=== PATIENT | female | born 1945 | race Caucasian/White ===

== ENCOUNTER 2020-05-16 12:22 | Outpatient (CLI) | payer MEDICARE, SELFPAY ==
--- NOTE | 2020-05-16 | ECG_ITS ---
Measurements Intervals [place] Rate: 73 P: 50 RI: 144 QRS: 15 QRSD: 87 T: 52 QT: 406 QTc: 450 Interpretive Statements SINUS RHYTHM RSR' IN V1 OR V2, CONSIDER RIGHT VENTRICULAR HYPERTROPHY OR RIGHT VCD DELAYED PRECORDIAL R/S TRANSITION BASELINE WANDER- I, II, III, AVR, AVL, AVF, V1-V4 BORDERLINE ECG Electronically Signed On 05-16-2020 13:45:01 CDT by Rocky Carey D.O.
[2020-05-16 12:49] LABS: Hemoglobin 12.5 g/dL (12.0-15.0)
[2020-05-16 13:00] LABS: Albumin Level 4.3 g/dL (3.5-5.1); Creatine Kinase 52 U/L (30-135); Glucose 92 mg/dL (65-105)
[2020-05-16 13:16] LABS: Hemoglobin A1C 5.7 % (<5.7)
[2020-05-19 10:19] LABS: Estimated Glomerular Filt Rate > 60
== END 2020-05-16 12:23 | disposition home or self-care (01) ==
PROVIDERS: PCP Internal Medicine; Visit Provider Orthopaedic Surgery
DX: Z01.818 Encounter for other preprocedural examination (principal); M17.11 Unilateral primary osteoarthritis, right knee; I10 Essential (primary) hypertension; E78.5 Hyperlipidemia, unspecified; E11.9 Type 2 diabetes mellitus without complications
CPT/HCPCS: 36415; 82040; 82550; 82565; 82947; 83036; 85014; 85018; 93005

== ENCOUNTER 2020-06-13 09:57 | Outpatient (CLI) | payer MEDICARE, SELFPAY ==
[2020-06-13 11:29] LABS: Basophils Percent Auto 0.6 % (0.2-1.2); Eosinophils Absolute Auto 0.2 K/mm3 (0-0.3); Eosinophils Percent Auto 2.8 % (0-4.4); Hematocrit 39.1 % (37.0-47.0); Hemoglobin 12.6 g/dL (12.0-15.0); Immature Granulocyte Absolute 0.03 K/mm3 (0.00-0.031); Immature Granulocyte Percent A 0.4 % (0-0.5); Lymphocytes Absolute Auto 1.46 K/mm3 (0.9-3.2); Lymphocytes Percent Auto 20.5 % (18.3-44.2); Mean Corpuscular HGB Conc 32.2 g/dl (32-36); Mean Corpuscular Hemoglobin 29.6 pg (26-34); Mean Platelet Volume 11.1 fl (7.4-10.4); Monocytes Absolute Auto 0.5 K/mm3 (0.1-0.6); Monocytes Percent Auto 7.6 % (2.6-8.5); Neutrophils Absolute Auto 4.9 K/mm3 (1.3-6.7); Neutrophils Percent Auto 68.1 % (45.5-73.1); Platelet Count Result 185 k/mm3 (150-375); Red Blood Count 4.25 M/mm3 (4.2-5.4); Red Cell Distribution Width 14.6 % (11.5-14.5); White Blood Count 7.1 K/mm3 (4.5-10.0)
[2020-06-13 11:38] LABS: Urine Cotinine NEGATIVE
[2020-06-13 11:43] LABS: Anion Gap 7 mmol/L (8-16); Blood Urea Nitrogen 19 mg/dL (7-17); Calcium 9.8 mg/dL (8.4-10.2); Carbon Dioxide 31 mmol/L (22-30); Chloride 96 mmol/L (98-107); Estimated Glomerular Filt Rate > 60; Glucose 95 mg/dL (65-105); Potassium 3.8 mmol/L (3.4-5.0); Sodium 134 mmol/L (137-145)
== END 2020-06-13 09:58 | disposition home or self-care (01) ==
LOC: ANHSURGERY 09:59
PROVIDERS: Anesthesiology; PCP Internal Medicine; Visit Provider Orthopaedic Surgery
DX: Z01.818 Encounter for other preprocedural examination (principal); M17.11 Unilateral primary osteoarthritis, right knee; I10 Essential (primary) hypertension
CPT/HCPCS: 36415; 80048; 80307; 85025; 87081

== ENCOUNTER 2020-06-28 02:15 | Outpatient (CLI) | payer MEDICARE, SELFPAY ==
[2020-06-28 18:16] LABS: SARS-CoV-2 RNA PCR Negative
== END 2020-06-28 02:16 | disposition home or self-care (01) ==
LOC: ANHCOVIDDT 02:16
PROVIDERS: PCP Internal Medicine; Visit Provider Orthopaedic Surgery
DX: Z01.812 Encounter for preprocedural laboratory examination (principal); Z20.828 Contact with and (suspected) exposure to other viral communicable diseases
CPT/HCPCS: 87635; C9803; U0003

== ENCOUNTER 2020-06-30 00:07 | Day surgery (SDC) | payer MEDICARE, SELFPAY ==
[2020-06-13 10:06] VITALS: BMI 31.1
[2020-06-13 10:24] VITALS: BP 149/53; PULSE 73; RESP 16; TEMP 37.1; O2SAT 100
--- NOTE | 2020-06-29 14:29 | WPDANESEPPF ---
Anes - Initial Pre Proc Eval Procedure: Operation Date: 06/30/20 07:30 Proposed Procedures p Right Total Knee Arthroplasty - Toni Davis MD Date/Time: 06/29/20 14:29 Surgeon: Toni Davis MD Pre Op Diagnosis: OA Right Knee Patient Data Age: 75 Gender: F Height: 1.65 m Weight: 85 kg Last Vital Signs Temp 37.1 C 06/13/20 10:24 Pulse 73 06/13/20 10:24 Resp 16 06/13/20 10:24 BP 149/53 H 06/13/20 10:24 Pulse Ox 100 06/13/20 10:24 Allergies Allergy/AdvReac Type Severity Reaction Status Date / Time house dust Allergy Unknown Sneezing/RA Verified 06/13/20 10:10 SH mold Allergy Unknown Sneezing Verified 06/13/20 10:10 pollen extracts Allergy Unknown Sneezing Verified 06/13/20 10:10 Home Medications Medication Instructions Recorded Confirmed Type allopurinol 300 mg tablet 300 mg PO DAILY 08/28/19 06/30/20 History ciprofloxacin HCl 500 mg tablet 250 mg PO HS 08/28/19 06/30/20 History fluticasone propionate 50 2 spray NASAL DAILY 08/28/19 06/30/20 History mcg/actuation nasal spray,suspension losartan 50 mg tablet 50 mg PO DAILY 08/28/19 06/30/20 History montelukast 10 mg tablet 10 mg PO HS 08/28/19 06/30/20 History naproxen 500 mg tablet 500 mg PO BID 08/28/19 06/30/20 History simvastatin 40 mg tablet 40 mg PO DAILY 08/28/19 06/13/20 History solifenacin 10 mg tablet 10 mg PO HS 08/28/19 06/13/20 History triamterene 37.5 1 tablet PO QAM 08/28/19 06/13/20 History mg-hydrochlorothiazide 25 mg tablet artifi.tears(hypromellose)(PF) 0.3 1 drop EACH EYE DAILY PRN 11/02/19 06/30/20 History % eye drops cetirizine 10 mg capsule 10 mg PO DAILY cap 11/02/19 06/30/20 History ergocalciferol (vitamin D2) 1,250 50,000 unit PO WEEKLY 11/02/19 06/30/20 History mcg (50,000 unit) capsule albuterol sulfate 1 puff INHALATION PRN PRN 06/13/20 06/30/20 History fluticasone propionate [Flovent 2 puff INHALATION BID 06/13/20 06/30/20 History HFA] pioglitazone 30 mg PO QAM 06/13/20 06/13/20 History Patient hx anesthesia problems: none Family hx anesthesia problems: none PMFSH Past Medical History Medical History (Updated 06/20/20 @ 08:23 by Toni Davis MD) Asthma Breast cancer Gout Hay fever History of breast cancer Hypertension Malignant neoplasm of breast Multiple-type hyperlipidemia Osteoarthritis of right knee Overactive bladder Type 2 diabetes mellitus Surgical History Surgical History History of bilateral cataract extraction (~2017) History of D&C (~1969) History of exploratory laparotomy (~1969) History of hysterectomy (~1969) History of mastectomy (~1988) History of oophorectomy (~1993) History of total left knee replacement (~2012) Family History Family History Father Family history of emphysema Hypertension Mother Hypertension Mother Brain aneurysm Sibling Diabetes mellitus Social History Social History Smoking packs per day: 1 Smoking cigarettes per day: 20.0 Years smoked: 10 Smoking pack-years: 10.00 Smoking status: Former smoker Tobacco type: cigarettes Second hand tobacco smoke exposure: No Smoking end date: 09/23/71 Additional smoking assessment comments: DENIES ANY FORM OF TOBACCO/NICOTINE USE Alcohol intake: current Drinks per week: 8 Alcohol use details: WINE Living arrangements: with family Spiritual care concerns: No Anes - Eval Final PreProcedure Day of Procedure 06/29/20 14:29 Patient weight: obese Heart: regular rate and rhythm Lungs: clear to auscultation and normal air movement Airway: Mallampati scale class II Neurological: alert and oriented Last oral intake: >/= 8 hours ASA classification: III Emergent: no Anesthetic plan: proceed Anesthesia type and monitoring: general LMA and standard monitoring Inform
--- NOTE | 2020-06-29 14:29 | WPDANESPNB ---
Anes - Peripheral Nerve Block Date/Time: 06/29/20 14:29 I have discussed with the patient/family/POA the placement of a peripheral nerve block for post-operative pain management, including associated risks, benefits, complications, and side effects. Alternative methods of post-operative analgesia were detailed. Questions were solicited and answers provided to the satisfaction of the patient/family/POA. Time-Out: A pre-procedural Time-Out was completed immediately before starting the procedure and confirmed: Patient Identification, Site, Procedure, Patient Position and the Availability of Requisite Equipment. Clinical Indications: Acute post-operative pain management requested by the operative surgeon. Nerve Block Insertion Note Anes-nerve block: adductor canal right Patient position: supine Skin prep: chlorhexidine Needle: 22 gauge, stimulating, insulated echogenic needle. Needle length: 80 mm Technique: ultrasound Injectate: bupivacaine 0.5% with epi 5 mcg/ml (30cc) Observations: tolerated well Complications: none Procedure start time:: 722 Procedure end time:: 725
[2020-06-30] VITALS (14 sets, daily range): BP systolic 110–149; BP diastolic 50–74; PULSE 76–98; RESP 12–20; TEMP 36.4–37.1; O2SAT 95–100
--- NOTE | ~2020-06-30 | XR_ITS ---
EXAMINATION: XR knee RT 2V DATE: 06/30/2020 10:03 INDICATION: Postoperative evaluation following right total knee arthroplasty. TECHNIQUE: Anteroposterior and lateral views of the right knee were obtained. COMPARISON: 11/02/2019 FINDINGS: Right total knee arthroplasty with patellar resurfacing appears well seated and in near anatomic alig nment. No fractures identified. Expected postoperative subcutaneous and intra-articular gas. IMPRESSION: 1. Right total knee arthroplasty, negative for postoperative purposes. Reviewed, dictated and finalized at location A.
[2020-06-30] MEDS: ACETAMINOPHEN 500 MG TABLET 1000 MG PO (06:52)
[2020-06-30] MEDS: LACTATED RINGERS 1,000 ML 30 ML IV CONT ×2 (07:05→09:49)
[2020-06-30] MEDS: TRANEXAMIC ACID 1,000MG/ISO100 1,000 MG/100 ML BAG 200 MG IVPB (07:10)
[2020-06-30 07:13] LABS: Glucose Point of Care 105 (65-105)
--- NOTE | 2020-06-30 07:17 | WPDHPUPDATE1 ---
History and Physical Update Update Date/Time: 06/30/20 07:17 History and Physical has been reviewed, including an updated exam of the patient. There are NO changes in the patient's condition. Risks, benefits, and alternatives have been discussed and questions answered. Patient agrees to proceed with procedure.
[2020-06-30] MEDS: KETOROLAC 15 MG/ML VIAL (*BKC) IV PUSH (07:19)
[2020-06-30] MEDS: ceFAZolin 2 GM/D5W 50 ML 2 GM/50 ML BAG IVPB (07:29)
[2020-06-30] MEDS: GENTAMICIN BONE CEMENT REFOBACIN 1 EACH TOPICAL (07:56)
[2020-06-30 10:16] LABS: Glucose Point of Care 155 (65-105)
--- NOTE | 2020-06-30 10:19 | P.OP_ITS ---
Procedure Note - Detailed Date of procedure: 06/30/20 Pre-op diagnosis: OA Right Knee Post-op diagnosis: same Procedure performed: Total knee arthroplasty, Right Description of procedure: mild valgus deformity. No lateral release required. Satisfactory bone quality. Standard bony resections performed. Femur at 3? which matched the AP axis. Implants: [employer] size 3 cemented femur, size 3 cemented low-profile tibia, 11 mm CR polyethylene insert, 32 mm asymmetric Polyethylene patellar component. Anesthesia: GETA and regional (subsartorial nerve block) Surgeon: Toni Davis MD Estimated blood loss (mL): 150 Drains: No Complications: None Condition: stable Disposition: PACU Findings: OPERATIVE DETAILS: The patient was given a nerve block preoperatively, and then brought to the operating room. A general anesthetic was administered. The leg was prepped and draped in the usual sterile fashion. The limb was elevated and the tourniquet inflated to 300 mmHg during initial exposure, and cementation. A longitudinal incision was created along the medial border of the patella and patellar tendon, and a minimally invasive optimized mid-vastus approach to the knee was performed. No medial release was taken. The knee was then flexed. The osteophytes were carefully removed. The intramedullary guide was placed in the femoral canal. The distal femoral resection was then taken with the oscillating saw. The collateral ligaments were carefully protected. The tibia was carefully exposed. The jig was applied, and the proximal tibia was resected according to preoperative plan. The pain really anesthetic mixture was injected into the periarticular tissues. The knee was balanced in extension, and appropriate releases were taken where needed. The anterior cruciate ligament and meniscal remnants were removed. The posterior cruciate ligament was preserved. The patella was measured. Patellar resection was carried out with the oscillating saw. The lug holes drilled. The femur was sized and rotation assessed using a combination of gap balancing, posterior referencing, and the AP axis. The 4 in 1 cutting block was used to finish the femoral cuts after equal gaps were assured. The lug holes were drilled. The osteophytes were carefully removed from the back of the knee. The knee was copiously irrigated with ant ibiotic solution periodically throughout the procedure. The spacer block was used to confirm equal flexion and extension gaps. Further releases were performed as needed. The tibia was sized and broached. The bony surfaces were prepared for cementing with pulsatile lavage. The real tibial component and femoral components were cemented into position. Excess cement was carefully removed. The polyethylene insert was placed. The patella component was subsequently cemented. Patellar tracking was carefully assessed. No additional releases were required. The wound was closed with #1 Vicryl suture, #2 Quill suture, 4-[id number] suture, and 2-0 Strata-fix suture followed by Steri-Strips. A sterile bulky dressing was applied. Meticulous hemostasis was maintained throughout the procedure. There were no complications. The patient was extubated and brought to the recovery room in stable condition after the application of sterile dressing with Tyrone bandage.
[2020-06-30] MEDS: METOCLOPRAMIDE HCL INJ 10 MG/2 ML VIAL IV PUSH (11:53)
[2020-06-30 13:03] LABS: Glucose Point of Care 145 (65-105)
[2020-06-30] MEDS: oxyCODONE HCL (*CRX) 5 MG TAB IR PO ×3 (16:38→21:02)
[2020-06-30] MEDS: MELOXICAM 7.5 MG TABLET PO (16:43)
[2020-06-30] MEDS: DOCUSATE SODIUM 100 MG CAPSULE PO (16:43)
[2020-06-30] MEDS: ASPIRIN 81 MG ENTERIC TABLET PO (17:19)
--- NOTE | 2020-06-30 18:54 | ADMGEN ---
This patient, Mirela Sandhu, was admitted to Medical Room 253-01. Patient/family oriented to hospital policies and general routines including ID bracelet, bed and alarms, visiting hours, pain management, procedures, bathroom and other care routines, personal items, smoking policy, room service/diet, and visiting hours. Valuables list has been completed. Information on how to activate the Rapid Response Team has been discussed. Patient/Family are encouraged to report perceived risks to care and to ask questions if they do not understand what they are told or what they should do.
[2020-06-30 20:37] LABS: Glucose Point of Care 165 (65-105)
[2020-06-30] MEDS: SOLIFENACIN 5 MG TABLET 10 MG PO (20:59)
[2020-06-30] MEDS: MONTELUKAST SODIUM 10 MG TABLET PO (20:59)
[2020-06-30] MEDS: CIPROFLOXACIN 250 MG TABLET PO (21:00)
[2020-06-30] MEDS: SENNOSIDES 8.6 MG TABLET 17.2 MG PO (21:00)
[2020-06-30] MEDS: FAMOTIDINE 20 MG TABLET PO (21:00)
[2020-06-30] MEDS: FLUTICASONE PROP 110 MCG INHALER 12 GM (*SP) 2 PUFF INHALATION (21:01)
[2020-07-01 00:43] VITALS: BP 119/49; PULSE 71; RESP 20; TEMP 36.1; O2SAT 100
[2020-07-01] MEDS: oxyCODONE HCL (*CRX) 5 MG TAB IR PO ×4 (01:19→12:56)
[2020-07-01 04:39] VITALS: BP 131/53; PULSE 72; RESP 20; TEMP 36.1; O2SAT 98
[2020-07-01 06:21] LABS: Basophils Percent Auto 0.2 % (0.2-1.2); Eosinophils Percent Auto 0.3 % (0-4.4); Hematocrit 32.4 % (37.0-47.0); Hemoglobin 10.7 g/dL (12.0-15.0); Immature Granulocyte Absolute 0.05 K/mm3 (0.00-0.031); Immature Granulocyte Percent A 0.5 % (0-0.5); Lymphocytes Absolute Auto 1.27 K/mm3 (0.9-3.2); Lymphocytes Percent Auto 12.3 % (18.3-44.2); Mean Corpuscular Hemoglobin 30.1 pg (26-34); Mean Corpuscular Volume 91.3 fl (80-100); Mean Platelet Volume 11.7 fl (7.4-10.4); Monocytes Absolute Auto 0.9 K/mm3 (0.1-0.6); Monocytes Percent Auto 8.5 % (2.6-8.5); Neutrophils Absolute Auto 8.1 K/mm3 (1.3-6.7); Neutrophils Percent Auto 78.2 % (45.5-73.1); Platelet Count Result 157 k/mm3 (150-375); Red Blood Count 3.55 M/mm3 (4.2-5.4); Red Cell Distribution Width 14.3 % (11.5-14.5); White Blood Count 10.3 K/mm3 (4.5-10.0)
[2020-07-01 06:40] LABS: Anion Gap 7 mmol/L (8-16); Blood Urea Nitrogen 23 mg/dL (7-17); Calcium 9.3 mg/dL (8.4-10.2); Carbon Dioxide 30 mmol/L (22-30); Chloride 93 mmol/L (98-107); Estimated CRCL calculation 45 ml/min; Estimated Glomerular Filt Rate 54; Glucose 109 mg/dL (65-105); Potassium 3.8 mmol/L (3.4-5.0); Sodium 130 mmol/L (137-145)
[2020-07-01 07:50] LABS: Glucose Point of Care 121 (65-105)
[2020-07-01] MEDS: FLUTICASONE PROP 110 MCG INHALER 12 GM (*SP) 2 PUFF INHALATION (08:09)
[2020-07-01 08:11] VITALS: O2SAT 97
[2020-07-01] MEDS: TRIAMTERENE 37.5 MG/HCTZ 25 MG (MAXZIDE) TABLET 1 TAB PO (09:44)
[2020-07-01] MEDS: SIMVASTATIN 20 MG TABLET 40 MG PO (09:44)
[2020-07-01] MEDS: DOCUSATE SODIUM 100 MG CAPSULE PO (09:44)
[2020-07-01] MEDS: FLUTICASONE PROPIONATE 0.05% NA SPR 16 GM BTL (*BKC) 2 SPRAY NASAL (09:45)
[2020-07-01] MEDS: MELOXICAM 7.5 MG TABLET PO (09:45)
[2020-07-01] MEDS: FAMOTIDINE 20 MG TABLET PO (09:45)
[2020-07-01] MEDS: LORATADINE 10 MG TABLET PO (09:45)
[2020-07-01] MEDS: LOSARTAN POTASSIUM 50 MG TABLET PO (09:45)
[2020-07-01] MEDS: PIOGLITAZONE HCL 30 MG TABLET PO (09:47)
[2020-07-01 10:00] VITALS: BP 129/45; PULSE 70; RESP 14; TEMP 37.2; O2SAT 99
[2020-07-01] MEDS: ASPIRIN 81 MG ENTERIC TABLET PO (10:21)
[2020-07-01] MEDS: allopurinoL 300 MG TABLET PO (10:21)
[2020-07-01 11:31] LABS: Glucose Point of Care 109 (65-105)
--- NOTE | 2020-07-01 13:23 | WPDANESPN ---
Anes - Prog Note Post-Op Date/Time: 07/01/20 13:23 Cardiovascular status: normal Respiratory status: normal Airway patency: baseline Mental status: baseline Post-Op hydration status: normal Vital Signs: Last Vital Signs Temp 37.2 C 07/01/20 10:00 Pulse 70 07/01/20 10:00 Resp 14 07/01/20 10:00 BP 129/45 L 07/01/20 10:00 Pulse Ox 99 07/01/20 10:00 Pain Score (VAS): 2 I/O: Intake & Output 06/30/20 07/01/20 07/01/20 23:59 07:59 15:59 Intake Total 700 440 360 Output Total 450 Balance 250 440 360 Laboratory Tests 07/01/20 05:37 07/01/20 05:37 06/30/20 07/01/20 07/01/20 20:35 05:37 05:37 WBC 10.3 H RBC 3.55 L Hgb 10.7 L Hct 32.4 L MCV 91.3 MCH 30.1 MCHC 33.0 RDW 14.3 Plt Count 157 MPV 11.7 H Immature Gran % (Auto) 0.5 Neut % (Auto) 78.2 H Lymph % (Auto) 12.3 L [place] % (Auto) 8.5 Eos % (Auto) 0.3 Baso % (Auto) 0.2 Lymph # (Auto) 1.27 [place] # (Auto) 0.9 H Eos # (Auto) 0.0 Baso # (Auto) 0.0 Abs Immat Gran (auto) 0.05 H Absolute Neuts (auto) 8.1 H Absolute Nucleated RBC 0.0 Nucleated RBC % 0.0 Sodium 130 L Potassium 3.8 Chloride 93 L Carbon Dioxide 30 Anion Gap 7 L BUN 23 H Creatinine 1.00 Estim Creat Clear Calc 45 Estimated GFR 54 L Glucose 109 H POC Capillary Glucose 165 H Calcium 9.3 07/01/20 07/01/20 07:42 11:29 WBC RBC Hgb Hct MCV MCH MCHC RDW Plt Count MPV Immature Gran % (Auto) Neut % (Auto) Lymph % (Auto) [place] % (Auto) Eos % (Auto) Baso % (Auto) Lymph # (Auto) [place] # (Auto) Eos # (Auto) Baso # (Auto) Abs Immat Gran (auto) Absolute Neuts (auto) Absolute Nucleated RBC Nucleated RBC % Sodium Potassium Chloride Carbon Dioxide Anion Gap BUN Creatinine Estim Creat Clear Calc Estimated GFR Glucose POC Capillary Glucose 121 H 109 Calcium Post-procedural complaints: none Patient Feedback: Patient satisfied with anesthetic care.
--- NOTE | 2020-07-01 16:02 | PM.DS ---
DS: Admitting Diagnosis Admitting Diagnosis Admitting Diagnosis: OA Right Knee DS: Discharge Diagnosis Discharge Diagnosis (1) Status post total knee replacement, right: Code(s): Z96.651 - Presence of right artificial knee joint Status: Acute DS: Summary Hospital Course Reason for hospitalization: Total knee arthroplasty. Hospital Course: Tolerated surgery well. Progressed appropriately with therapy. Status at Discharge Functional status at discharge: uses cane/walker Overall status at discharge: patient is progressing back to baseline Time Spent with Patient Time attestation: Total time spent providing and/or coordinating discharge services: Exam Const: General: no acute distress Resp: Effort & Inspection: normal respiratory effort Skin: Other: Wound healing well. Mepilex dressing intact. No hematoma or drainage. Neuro: Motor exam (neuro): 5/5 motor strength present throughout Sensory Exam: normal sensation Psych: Mental Status: mental status grossly normal Speech and movement: Normal speech and movement present DS: Data Data Completed and Pending Labs on day of discharge: Labs from last 24 hours 07/01/20 07/01/20 07/01/20 11:29 07:42 05:37 WBC RBC Hgb Hct MCV MCH MCHC RDW Plt Count MPV Immature Gran % (Auto) Neut % (Auto) Lymph % (Auto) [place] % (Auto) Eos % (Auto) Baso % (Auto) Lymph # (Auto) [place] # (Auto) Eos # (Auto) Baso # (Auto) Abs Immat Gran (auto) Absolute Neuts (auto) Absolute Nucleated RBC Nucleated RBC % Sodium 130 L Potassium 3.8 Chloride 93 L Carbon Dioxide 30 Anion Gap 7 L BUN 23 H Creatinine 1.00 Estim Creat Clear Calc 45 Estimated GFR 54 L Glucose 109 H POC Capillary Glucose 109 121 H Calcium 9.3 07/01/20 06/30/20 05:37 20:35 WBC 10.3 H RBC 3.55 L Hgb 10.7 L Hct 32.4 L MCV 91.3 MCH 30.1 MCHC 33.0 RDW 14.3 Plt Count 157 MPV 11.7 H Immature Gran % (Auto) 0.5 Neut % (Auto) 78.2 H Lymph % (Auto) 12.3 L [place] % (Auto) 8.5 Eos % (Auto) 0.3 Baso % (Auto) 0.2 Lymph # (Auto) 1.27 [place] # (Auto) 0.9 H Eos # (Auto) 0.0 Baso # (Auto) 0.0 Abs Immat Gran (auto) 0.05 H Absolute Neuts (auto) 8.1 H Absolute Nucleated RBC 0.0 Nucleated RBC % 0.0 Sodium Potassium Chloride Carbon Dioxide Anion Gap BUN Creatinine Estim Creat Clear Calc Estimated GFR Glucose POC Capillary Glucose 165 H Calcium Discharge Plan Discharge Patient Disposition: Home, Self-Care Discharge Instructions: See instruction sheet. Patient Instructions: Precautions after Total Joint Replacement Surgery (ED), Joint Replacement Surgery (DC), Knee Replacement (DC) Follow-up/Referrals: Toni Davis MD [Physician] - Discharge Medications: New aspirin 81 mg Tablet,Delayed Release (Dr/Ec) 81 mg PO BID 14 Days Qty: 28 RF: 0 oxycodone-acetaminophen 5-325 mg tablet 1 - 2 tablet PO Q4-6H MDD 8 tablets PRN (Reason: pain) Qty: 40 RF: 0 Continued ergocalciferol (vitamin D2) 1,250 mcg (50,000 unit) capsule 50,000 unit PO WEEKLY RF: 0 Wal-Zyr (cetirizine) 10 mg capsule 10 mg PO DAILY RF: 0 artifi.tears(hypromellose)(PF) 0.3 % drops 1 drop EACH EYE DAILY PRN (Reason: Dry Eyes) RF: 0 allopurinol 300 mg tablet 300 mg PO DAILY RF: 0 ciprofloxacin HCl 500 mg tablet 250 mg PO HS RF: 0 fluticasone propionate 50 mcg/actuation spray,suspension 2 spray NASAL DAILY RF: 0 losartan [Cozaar] 50 mg tablet 50 mg PO DAILY RF: 0 montelukast 10 mg tablet 10 mg PO HS RF: 0 naproxen 500 mg tablet 500 mg PO BID RF: 0 simvastatin 40 mg tablet 40 mg PO DAILY RF: 0 solifenacin 10 mg tablet 10 mg PO HS RF: 0 triamterene-hydrochlorothiazid 37.5-25 mg tablet 1 tablet PO QAM RF: 0 albuterol sulfate 90 mcg/actuation HFA aerosol inhale
== END 2020-07-01 15:00 | disposition home or self-care (01) ==
LOC: ANHSURGERY 06:05 → ANH2MED 11:00
PROVIDERS: PCP Internal Medicine; Visit Provider Orthopaedic Surgery
PROC: (CPT 27447; principal; 2020-06-30 07:30)
DX: M17.11 Unilateral primary osteoarthritis, right knee (principal); G89.18 Other acute postprocedural pain; I10 Essential (primary) hypertension; E78.2 Mixed hyperlipidemia; E11.9 Type 2 diabetes mellitus without complications; J45.909 Unspecified asthma, uncomplicated; M10.9 Gout, unspecified; Z85.3 Personal history of malignant neoplasm of breast; Z87.891 Personal history of nicotine dependence; E66.9 Obesity, unspecified; Z68.30 Body mass index [BMI] 30.0-30.9, adult
CPT/HCPCS: 27447; 64447; 36415; 73560; 80048; 85025; 86850; 86900; 86901; 94640; 97110; 97116; 97161; 97165; 97530; A9270; C1713; C1776; J0131; J0171; J0690; J1100; J1170; J1885; J2250; J2270; J2370; J2405; J2704; J2765; J2795; J3010; J7120